=== PATIENT | male | born 1970 | race Caucasian/White ===

== ENCOUNTER 2018-12-15 05:22 | Day surgery (SDC) | payer OTHER, SELFPAY ==
[2018-08-31 15:59] VITALS: BMI 24.0
--- NOTE | 2018-12-14 23:22 | HP.PCM_ITS ---
History and Physical Date of Admission: 12/15/18 HISTORY OF PRESENT ILLNESS 48 year old man presents with a soft tissue mass superior aspect left postauricular area that has increased in size over the last several months and has become more raised in configuration. He states there is some pain when it is bumped and when his glasses rub against it. She denies any fever. She denies any trauma. She denies any recent infection. She denies any drainage. She denies any bleeding. He presents at this time for further evaluation and treatment. PAST MEDICAL HISTORY Negative PAST SURGICAL HISTORY hand surgery ALLERGIES azithromycin [From Zithromax] TREE NUTS MEDICATIONS None FAMILY HISTORY Father - Esophageal cancer SOCIAL HISTORY Smoking Status: Never smoker alcohol intake: current substance use type: does not use REVIEW OF SYSTEMS General - Denies fever, fatigue, and weight loss. Eyes - Denies cataracts and glaucoma. ENT - Denies nasal congestion and sore throat. Endocrine - Denies excessive thirst and urination. Skin - Denies skin cancer. Has an enlarging soft tissue mass superior aspect left postauricular area. Musculoskeletal - Denies joint pain, joint stiffness, weakness of muscles and joints, back pain, and arthritis. Neuro - Denies headaches. Cardiovascular - Denies chest pain, fatigue, and shortness of breath with exertion. Psych - Denies anxiety and depression. Respiratory - Denies chronic cough and shortness of breath. Gastrointestinal - Denies nausea, vomiting, diarrhea, and constipation. Hematologic - Denies abnormal bruising and bleeding. Genitourinary - Denies hematuria and urinary frequency. PHYSICAL EXAMINATION General - Alert and Oriented. HEENT - PERRL. EOMI. Throat is clear. On the superior aspect left postauricular area is a soft tissue mass that measures 6 mm. It is raised in configuration. It is mobile. Mild tenderness to palpation. No ulceration. No evidence of infection. Neck - Supple and nontender. No cervical adenopathy. No suspicious lesions noted. Lungs - Clear to auscultation. Heart - Regular rate and rhythm. Abdomen - Soft and nondistended. Extremities - FROM. No axillary adenopathy. Radial pulses are palpable. No suspicious lesions noted. Neuro - CN II-XII grossly intact. Psych - Normal mood and affect. ASSESSMENT 9 mm painful soft tissue mass superior aspect left postauricular area. PLAN Recommend excision soft tissue mass superior aspect left postauricular area and send it to Pathology for analysis to rule out carcinoma. If there is some adherence of the skin to this soft tissue mass, then some additional skin would be excised to minimize recurrence which may necessitate a local skin flap reconstruction. Surgery will be done on an outpatient basis under local anesthesia and IV sedation. Patient was informed of the risks and complications of the procedure including alternatives to surgery. These were discussed with the patient personally. Patient voices understanding and wishes to proceed. Some of the risks and complications were included in a form from the [employer].
[2018-12-15] VITALS (7 sets, daily range): BP systolic 94–129; BP diastolic 63–90; PULSE 54–69; RESP 16; TEMP 36–36.8; O2SAT 96–98; BMI 23.6
--- NOTE | 2018-12-15 07:30 | MASS_PTH ---
PATIENT: TG ZUNIGA LOC: [facility] [place] U#:[id number] AGE/SX: 48/M ROOM: RE12/15/[address]: Dr. Clarke German MD : [id number] BED: DIS: 12/15/2018 SPEC #: [id number] RECD: 12/15/18 09:49 STATUS: PAO HUY #: [id number] BETY: 12/15/18 07:[address]: Clarke German DEPT: SURGICAL PATHOLOGY RECD BY: Gustavo Yepez ENTERED: 12/15/18 10:22 SP TYPE: Mass OTHR DR: Dr. Riki Lantigua, DO Tissues: Postauricular region Procedures: Surgery Specimen Level III HEADER OPERATION: Excision soft tissue mass, postauricular area PRE-OP DIAGNOSIS: Painful soft tissue, 6 mm, mass superior aspect left postauricular area TISSUE SUBMITTED: Soft tissue mass postauricular area MICROSCOPIC DIAGNOSIS Soft tissue mass postauricular area, excision: Epidermal inclusion cyst. SJ:dalia 12/18/18 MICROSCOPIC DESCRIPTION Slides are reviewed. GROSS DESCRIPTION Received in fixative is one container labeled with the patient's name and designated soft tissue mass postauricular area. The specimen consists of an excisional biopsy of skin and underlying soft tissue. The skin surface measures 1.1 cm in length x 0.2 cm in width. The skin surface is parekh. The underlying soft tissue is parekh, nodular and measures 0.8 x 0.7 cm and is excised to a depth of 0.7 cm. The excisional margin is inked black and the specimen is bisected to reveal a parekh-yellow nodule. The center of the nodule has a slightly darker yellow color (possibly cystic). [place] Patcher sections are submitted in one cassette. / CE:dalia 12/15/18 TC:5 CPT: 97425
--- NOTE | 2018-12-15 08:04 | PCM.OPRPT ---
Report of Operation Date of Procedure: 12/15/18 Pre-Operative Diagnosis: 9 mm painful soft tissue mass superior aspect left postauricular area. Post-Operative Diagnosis: Same. Surgery/Procedure Performed:: Excision 9 mm painful soft tissue mass superior aspect left postauricular area with 1.5 cm layered closure. Description of Surgical Findings:: 48 year old man presents with a soft tissue mass superior aspect left postauricular area that has increased in size over the last several months and has become more raised in configuration. He states there is some pain when it is bumped and when his glasses rub against it. He denies any fever. He denies any trauma. He denies any recent infection. He denies any drainage. He denies any bleeding. Since his office visit 3 months ago, the mass had increased in size from 6 mm to 9 mm. Patient was informed of the risks and complications of the procedure including alternatives to surgery. These were discussed with the patient personally. Patient voices understanding and wishes to proceed. Some of the risks and complications were included in a form from the [employer]. thermal cutting machine operator: None Type of Anesthesia:: Local MAC - xylocaine with epinephrine and IV sedation. Specimen's removed: Painful soft tissue mass left postauricular area to Pathology. Drains: None. Estimated Blood Loss (mL): 2 ml. Description of Procedure: Patient was taken to OR in supine position and was given IV sedation. The left ear and postauricular areas were prepped and draped in the usual fashion. SCD's were placed for DVT prophylaxis. Perioperative antibiotics were given intravenously. The painful soft tissue mass left postauricular area was infiltrated with xylocaine and epinephrine. After waiting 5 minutes for the anesthetic to take effect, I made a longitudinal elliptical incision over the mass. Some adherence of the mass to the skin was noted. I dissected into the subcutaneous tissue. The mass was well encapsulated with surrounding scar tissue. The scar tissue was excised along with the mass which was adherent to the underlying fascia. The mass appeared to be cystic in nature. When excised, the mass was sent to Pathology for analysis to rule out carcinoma. Hemostasis was obtained with electrocautery. The remaining skin looked viable enough for primary closure without having to excise any more skin which would have necessitated a skin flap or skin graft reconstruction. The wound was then closed in a layered fashion with 5-0 Monocryl interrupted sutures for the deep dermis and subcutaneous tissue. The skin was approximated with 5-0 Prolene simple interrupted sutures. Antibiotic ointment was applied to the incision followed by a small gauze dressing. Patient tolerated the procedure well and was sent to PACU in satisfactory condition. Patient will be sent home on antibiotics and pain medication. He will keep his head elevated during the initial postop period. Patient will followup in a week for a wound check and for discussion of the pathology report and for removal of the sutures. Grafts/Implants Used: Nnne. - Complications Noine. - Admit VTE Documentation VTE Present on Admission: No VTE Mechan Device Prophylaxis: SCD's VTE Pharm Prophylaxis ordered?: No Code Visit Surgery Charges CPT - 11227 ICD-10 - R22.0, R20.8 21109 R22.0, R20.8
--- NOTE | 2018-12-15 08:12 | DCINST_ITS ---
You will use the following diet at home:: No restrictions May shower in (days): 2 May resume sexual activity in: No Restrictions Weight Bearing Status: Weight bearing as tolerated Lifting Restrictions: 20 lbs. Keep extremity elevated above heart level: - - elevate head. Call your doctor if your incision/area has: Continuous Slow Oozing, Sudden Increased Bleeding, Increased Pain/ Swelling, Increased Redness, Foul Smelling Discharge, Swelling at the incision site Call your doctor if you observe: Fever of 101 or Higher, Coldness, Increased Pain, Shortness of breath, Chest pain, Calf discomfort, Uncontrolled pain Suture Line Care: - - apply antibiotic ointment to suture line daily. Remove Dressing in (days):: 2 Cleanse incision/area with: - - may get the incision wet in the shower in two days. Allergies/Adverse Reactions: Allergies azithromycin [From Zithromax] Allergy (Intermediate, Verified 12/08/18 09:55) ALLERGY TREE NUTS Allergy (Uncoded 12/08/18 09:55) ALLERGY Medications to take at Discharge Clindamycin HCl [Cleocin] 300 mg PO TID #15 cap 12/15/18 Multivitamin [Multivitamins] 1 tab PO DAILY 12/15/18 Oxycodone HCl/Acetaminophen [Percocet 5/325] 1 tab PO TID PRN PRN 7 Days #20 tab 12/15/18 The following prescriptions were given: Clindamycin HCl [Cleocin] 300 mg PO TID #15 cap Prescription Printed Oxycodone HCl/Acetaminophen [Percocet 5/325] 1 tab PO TID PRN PRN 7 Days #20 tab PRN Reason: Pain Prescription Printed Primary Care Physician: Riki Lantigua DO [Primary Care Provider] - Test Results: Test results from this visit will be discussed in further detail at your follow- up appointment, if applicable. Please Follow Up With: Clarke German MD When: one week. call [phone] for appt. Proposed Discharge Date: 12/15/18
== END 2018-12-15 09:41 | disposition home or self-care (01) ==
LOC: SDC 05:23 → AC 05:24
PROVIDERS: Family Provider Family Medicine; PCP Family Medicine; Referring Provider Surgery; Visit Provider Surgery
PROC: (CPT 11441; principal; 2018-12-15 07:20)
DX: L72.0 Epidermal cyst (principal)
CPT/HCPCS: 00300; 11441; 12051; 88304; 88305; J7120